=== PATIENT | female | born 1945 | race Caucasian/White ===

== ENCOUNTER 2018-12-24 07:12 | Day surgery (SDC) | payer OTHER ==
--- NOTE | 2018-12-22 15:58 | EKG ---
Test Date: 2018-12-21 Test Time: 11:08:43 Cleaning Handyman: SUSAN MEASUREMENT RESULTS: Intervals: Rate: 65 MT: 168 QRSD: 92 QT: 398 QTc: 413 Dexter: P: 49 MT: 168 QRS: 46 T: 54 INTERPRETIVE STATEMENTS: Normal sinus rhythm Possible Left atrial enlargement Borderline ECG No previous ECG available for comparison Electronically Signed On 12-22-18 15:54:43 CDT by Dmitriy Mohan
--- OUTSIDE RECORDS SUMMARY | 2018-12-24 07:14 | XMS REPORT | Clinical Summary ---
:1945 Author Organization [facility] Address [address] [place] [address] Care Team Providers Name Role Phone Fausto Stuart MD Primary Care Provider Allergies Active Allergy Reactions Severity Noted Date Comments Morphine 11/17/2016 Medications Medication Sig Dispensed Refills Start Date End Date Status therapeutic Take 1 tablet 0 Active multivitamin by mouth (THERAGRAN) tablet daily. atorvastatin 0 10/28/2016 07/06/2018 Discontinued (LIPITOR) 40 MG tablet fexofenadine Take 60 mg by 0 07/06/2018 Discontinued (RADHA) 60 MG mouth daily. tablet FOLIC Take by mouth. 0 07/06/2018 Discontinued ACID/MULTIVIT-MIN/L UTEIN (CENTRUM SILVER ORAL) biotin 5,000 mcg Take by mouth. 0 07/06/2018 Discontinued tablet,disintegrati ng montelukast Take 1 tablet 30 tablet 3 07/06/2018 08/05/2018 (SINGULAIR) 10 mg (10 mg total) tablet by mouth nightly for 30 days. ipratropium 2 sprays into 30 mL 12 07/06/2018 08/05/2018 (ATROVENT) 42 mcg each nostril 3 (0.06 %) nasal (three) times spray a day for 30 days. Active Problems Problem Noted Date Allergic sinusitis 06/04/2017 Low back pain 11/20/2016 Lung nodule 11/17/2016 Encounters Date Type Specialty Care Team Description 07/27/2018 Orders Only Pulmonology Olman Gann MD 07/26/2018 Orders Only Pulmonology Olman Gann MD 07/06/2018 Office Visit Pulmonology Mal Sutton MD Lung nodule- RLL stable (Primary Dx); Allergic sinusitis after 12/23/2017 Family History Relation Name Status Comments Father Mother Social History Tobacco Use Types Packs/Day Years Used Date Former Smoker Smokeless Tobacco: Never Used Alcohol Use Drinks/Week oz/Week Comments Yes occasionally Sex Assigned at Date Recorded Not on file Job Start Date Occupation Industry Not on file Not on file Not on file Travel History Travel Start Travel End No recent travel history available. Last Filed Vital Signs Vital Sign Reading Time Taken Comments Blood Pressure 132/59 07/06/2018 2:01 PM CDT Pulse 77 07/06/2018 2:01 PM CDT Temperature 36.7 C (98 F) 07/06/2018 2:01 PM CDT Respiratory Rate 14 07/06/2018 2:01 PM CDT Oxygen Saturation 96% 07/06/2018 2:01 PM CDT Inhaled Oxygen Concentration - - Weight 82.1 kg (181 lb) 07/06/2018 2:01 PM CDT Height - - Body Mass Index - - Plan of Treatment Date Type Specialty Care Team Description 07/05/2019 Office Visit Pulmonology Mal Sutton MD [address] [facility] [address] [place] [address] [id number] Health Maintenance Due Date Last Done Comments BREAST CANCER SCREENING 1994 COLONOSCOPY SCREENING 1994 SHINGLES VACCINES (#1) 1994 65+ PNEUMOCOCCAL VACCINE (1 of 2 - PCV13) 2009 INFLUENZA VACCINE 11/11/2018 Procedures Procedure Name Priority Date/Time Associated Diagnosis Comments [id number] Routine 06/30/2018 CT CHEST W WO CONTRAST Routine 06/28/2018 after 12/23/2017 Results Miscellaneous Lab Result (06/30/2018) Specimen Blood Narrative Performed At CT Chest W Wo Contrast (06/28/2018) Narrative Performed At after 12/23/2017 Insurance Payer Benefit Plan / Subscriber ID Effective Dates Phone Address Type Group MEDICARE MEDICARE PART A xxxxxxxxxxx 2009-[place], [place] Medicare AND B t LINDA [employer] xxxxxxxxxx 2017-[facility] [employer] OF shamika CARSON Advance Directives For more information, please contact: [phone] Type Date Recorded Patient Supervisor Special Effects Explanation Advance Directives, Living Will and Medical Power of Transportation Technician
[2018-12-24] MEDS ORDERED: LIDOCAINE 1% W/EPI 1:100,000 MDV 20 ML VIAL ONE (07:21)
[2018-12-24] MEDS ORDERED: NA CHLORIDE 0.9% 250 ML ONE (07:21)
[2018-12-24] MEDS ORDERED: NA CHLORIDE 0.9% 0 ML ONE (07:22)
[2018-12-24] MEDS ORDERED: OXYMETAZOLINE HCL 0.05% 15ML NAS ONE (07:33)
[2018-12-24] MEDS ORDERED: Ringers Lactate 1,000 ML IV ONE ×2 (07:33→09:48)
[2018-12-24] MEDS: OXYMETAZOLINE HCL 0.05% 15ML NAS ONE ×3 (07:34→07:47)
[2018-12-24] MEDS ORDERED: ROCURONIUM 50 MG/5 ML VIAL IV ONE (07:40)
[2018-12-24] MEDS ORDERED: PROPOFOL 200 MG/20 ML VIAL IV ONE (07:40)
[2018-12-24] MEDS ORDERED: FENTANYL CITR 100 MCG/2 ML ONE ×2 (07:40→09:00)
[2018-12-24] MEDS ORDERED: LIDOCAINE 1% MPF 5 ML VIAL ONE (07:40)
[2018-12-24] MEDS ORDERED: ESMOLOL HCL 10 ML IV ONE (09:17)
[2018-12-24] MEDS ORDERED: KETOROLAC 30 MG/ML INJ ONE (09:20)
[2018-12-24] MEDS ORDERED: GLYCOPYRROLATE 0.2 MG/ML SYR ONE (09:20)
[2018-12-24] MEDS ORDERED: ONDANSETRON 4 MG/2 ML VIAL ONE (09:23)
[2018-12-24] MEDS ORDERED: NEOSTIGMINE 1 MG/ML -10 ML VIAL ONE (09:23)
--- NOTE | 2018-12-24 09:33 | P.BOP ---
Preoperative diagnosis: CRS, ITH Postoperative diagnosis: same Primary procedure: B NE with frontal, sphenoid and maxillary balloon dilation Secondary procedure: submucous resection B acute specialist: NONE,NONE Estimated blood loss: 20ml Specimen: none Findings: good dilation of all 6 sinuses Anesthesia: General Complications: None Implants: ultrafoam thick, approx 4 x 2cm each to B NC Fluids & blood products: crystalloid 1L Transferred to: Recovery Room Condition: Good
[2018-12-24 11:31] VITALS: BP 143/65; TEMP 98; O2SAT 99
--- NOTE | 2018-12-24 18:36 | OP ---
Date of Procedure: 12/24/2018 Surgeon: Maria Del Rosario Guardado MD Preoperative Diagnoses: Chronic rhinosinusitis, inferior turbinate hypertrophy, nasal congestion. Indication For Procedure: Ria Zhou is a 72-year-old who presented with complaints of nasal c ongestion and sinusitis. She was treated with intranasal steroid spray daily for 1 month, but contin ued to have nasal blockage and headache. She was treated with Augmentin for 21 days and post treatme nt CT scan demonstrated edema and mucosal thickening. The risks, benefits, and alternatives to the p rocedure were discussed with the patient and after considering options, she opted for surgical interv ention. Description Of Procedure: The patient was brought to the operating room. She was placed under gener al anesthesia via oral endotracheal tube. The head of bed was turned 90 degrees and the nasal hairs were trimmed with scissors. The nasal turbinates were injected with approximately 0.5 mL of 1% lidoc jayne with epinephrine and the nasal cavity was packed with Afrin-soaked pledgets. After removal, a 0 -degree endoscope was used to perform a nasal endoscopy. Significant findings included enlargement o f the bilateral inferior turbinates as well as a polypoid edema of the anterior portion of the middle turbinate. The middle turbinate was medialized using a [place] and the middle meatus was packed with Afrin-soaked pledgets and a similar procedure was performed on the right side. The Entellus balloon dilation device was prepared according to saddle stitcher's directions. The right nasal packing was rem luis and under 0-degree endoscopic guidance, the balloon device was advanced through the nasal cavity in the middle meatus and advanced into the frontal recess. There was a traumatic illumination of th e frontal sinus. The balloon was advanced over the probe and inflated. After several seconds, the b alloon was repositioned and reinflated to ensure full dilation of the path of the frontal recess. A similar procedure was performed on the left side. The middle meatus were packed with Afrin-soaked pl edgets and the device was reconfigured for use in the sphenoid sinus. The Afrin-soaked pledgets were removed and the sphenoid ostium was cannulated using the balloon device. The sphenoid sinus ostium was dilated bilaterally and the device was reconfigured to 135 degrees for dilation of the maxillary sinus. Under 0-degree endoscopic guidance, the right maxillary sinus was cannulated using the balloo n device and the ostium and infundibulum were dilated. A similar procedure was performed on the left side. The balloon device was then set aside and a submucous resection of the inferior turbinates wa s performed in the following manner. A sickle knife was used to make an incision in the anterior por tion of the inferior turbinates. The [place] elevator was used to develop a submucosal pocket and the microdebrider fitted with inferior turbinate blade was used to perform submucosal resection. A smal l area of the inferior aspect was removed. The handle of the straight curette was then used to down fracture the inferior turbinates bilaterally. The nasal cavities were packed with Afrin-soaked pledg ets for several minutes. After removal, the nasal cavity was thoroughly irrigated with sterile salin e and thoroughly suctioned. A dissolvable foam collagen hemostatic dressing was applied to the bilat eral nasal cavity and the patient was returned to care of anesthesia for awakening and extubation in the operating room, which proceeded without difficulty. Complications: None. Disposition: Patient will be discharged home later today in the care of her family and follow up cody Guardado in 10-14 days for further evaluation. NIDIA/ANIKA Voice ID: [id number] Report ID: [id number]
== END 2018-12-24 11:00 | disposition home or self-care (01) ==
LOC: OR 07:12
PROVIDERS: ATTEND Otolaryngology
PROC: 09QW8ZZ Repair Right Sphenoid Sinus, Via Natural or Artificial Opening Endoscopic (ICD-10-PCS; 2018-12-24)
PROC: 09QX8ZZ Repair Left Sphenoid Sinus, Via Natural or Artificial Opening Endoscopic (ICD-10-PCS; 2018-12-24)
PROC: 09QQ8ZZ Repair Right Maxillary Sinus, Via Natural or Artificial Opening Endoscopic (ICD-10-PCS; 2018-12-24)
PROC: 09QR8ZZ Repair Left Maxillary Sinus, Via Natural or Artificial Opening Endoscopic (ICD-10-PCS; 2018-12-24)
PROC: 09QS8ZZ Repair Right Frontal Sinus, Via Natural or Artificial Opening Endoscopic (ICD-10-PCS; 2018-12-24)
PROC: 09TL8ZZ Resection of Nasal Turbinate, Via Natural or Artificial Opening Endoscopic (ICD-10-PCS; 2018-12-24)
PROC: 09QT8ZZ Repair Left Frontal Sinus, Via Natural or Artificial Opening Endoscopic (ICD-10-PCS; principal; 2018-12-24 09:00)
DX: J32.4 Chronic pansinusitis (principal); J34.3 Hypertrophy of nasal turbinates; R09.81 Nasal congestion; M19.90 Unspecified osteoarthritis, unspecified site; Z87.891 Personal history of nicotine dependence; Z88.6 Allergy status to analgesic agent; Z82.49 Family history of ischemic heart disease and other diseases of the circulatory system
CPT/HCPCS: 93005; 31298; 31295; 30140; J2704; J2710; J3010 ×2; J2405